=== PATIENT | male | born 2005 | race Caucasian/White ===

== ENCOUNTER 2025-03-24 22:58 | Emergency (ER) | payer MEDICAID, SELFPAY ==
[2025-03-24 22:59] VITALS: BP 157/93; PULSE 102; RESP 18; TEMP 36.3; O2SAT 98; BMI 37.1
--- NOTE | 2025-03-24 23:30 | RAD_ITS ---
PROCEDURE: WRIST MIN 3 VIEWS 03/24/2025 REASON FOR EXAM: INJURY TECHNIQUE: WRIST MIN 3 VIEWS COMPARISON: None. FINDINGS: Acute nondisplaced fracture of the ulnar styloid process. No additional fracture or dislocation identified. Carpal alignment is maintained. Mild soft tissue swelling about the wrist. No radiopaque foreign body. RAD/Wrist min 3 Views IMPRESSION: Acute nondisplaced fracture of the distal ulnar styloid process. Reading Location: [id number]
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
[2025-03-25 00:22] VITALS: BP 146/54; PULSE 84; RESP 16; TEMP 36.3; O2SAT 99
== END 2025-03-25 00:23 | disposition home or self-care (01) ==
PROVIDERS: Emergency Provider Emergency Medicine; PCP Pediatrics; Visit Provider Emergency Medicine
DX: S52.614A Nondisplaced fracture of right ulna styloid process, initial encounter for closed fracture (principal); F90.9 Attention-deficit hyperactivity disorder, unspecified type; V00.121A Fall from non-in-line roller-skates, initial encounter; Y93.51 Activity, roller skating (inline) and skateboarding
CPT/HCPCS: 73110; 99283